=== PATIENT | male | born 1980 | race Caucasian/White ===

== ENCOUNTER 2023-10-12 19:17 | Observation (INO) | payer MEDICARE, OTHER ==
--- NOTE | 2023-10-12 19:31 | ED ---
General Adult HPI - General Chief complaint: Abdominal Pain Stated complaint: cholecystitis Time Seen by Provider: 10/12/23 19:30 Source: patient, EMS Mode of arrival: EMS Limitations: no limitations - History of Present Illness Initial comments: Patient transferred to our ED by ambulance from the [facility] ED. Per [facility] ED physician report, the patient presented there with complaints of right upper quadrant abdominal pain, and a CT obtained there demonstrated findings of acute cholecystitis. No ultrasound was performed at [facility]. Patient's CT report and labs were all reviewed myself. Patient's labs are pertinent for a WBC count of 13,000, a total bilirubin level of 2.8, a normal lipase level and normal transaminases. Patient reports having right upper quadrant abdominal pain, nausea and vomiting for the past 2 days. Patient states that his pain and nausea have currently improved. Patient was given a dose of IV Zosyn at [facility] prior to transfer to our ED. Patient denies trauma or injury, fever or chills, headache, focal neuro deficit, chest pain, dyspnea, cough or cold symptoms, dizziness, back or flank pain, diarrhea or constipation, bloody or melanotic stool, hematemesis, dysuria/hemat uria/urinary frequency/urinary symptoms, or any other symptoms or complaints. Of note, the patient is a Mosque. - Related Data Home Medications Medication Instructions Recorded Confirmed Ibuprofen/Diphenhydramine HCl 1 cap PO DIRECTED PRN 10/13/23 10/13/23 [Advil Pm Liqui-Gels] Levothyroxine Sodium [Synthroid] 50 mcg PO DAILY 10/13/23 10/13/23 Testosterone [Vogelxo 1%] 2 pump TOPICAL DAILY 10/13/23 10/13/23 Allergies Allergy/AdvReac Type Severity Reaction Status Date / Time Sulfa (Sulfonamide Allergy Rash/Hives/ Verified 10/13/23 09:53 Antibiotics) Itch Review of Systems ROS Statement: Those systems with pertinent positive or pertinent negative responses have been documented in the HPI. ROS Other: All systems not noted in ROS Statement are negative. Past Medical History Past Medical History: No Reported History History of Any Multi-Drug Resistant Organisms: None Reported Past Surgical History: No Surgical Hx Reported Additional Past Surgical History / Comment(s): States "cysts removed from legs and arms" Past Psychological History: No Psychological Hx Reported Smoking Status: Never smoker Past Alcohol Use History: Occasional Past Drug Use History: None Reported General Exam Limitations: no limitations General appearance: alert, in no apparent distress Eye exam: Present: normal appearance ENT exam: Present: mucous membranes moist Respiratory exam: Present: normal lung sounds bilaterally. Absent: respiratory distress, wheezes, rales, rhonchi, stridor Cardiovascular Exam: Present: regular rate, normal rhythm, normal heart sounds, other (Normal radial pulses bilaterally) GI/Abdominal exam: Present: soft, other (Mild right upper quadrant abdominal tenderness). Absent: guarding, rebound Back exam: Absent: CVA tenderness (R), CVA tenderness (L) Neurological exam: Present: alert, oriented X3 Psychiatric exam: Present: normal affect Skin exam: Present: warm, dry, normal color Course Vital Signs 10/12/23 10/12/23 10/12/23 19:24 21:59 23:47 Temperature 99.0 F 99.4 F Pulse Rate 82 82 80 Respiratory 18 16 18 Rate Blood Pressure 165/78 135/78 134/68 O2 Sat by Pulse 96 96 97 Oximetry - Reevaluation(s) Reevaluation #1: 10/12/23 21:42 Multiple pages have been sent to the on-call general surgeon (Dr. Munguia) without response as of yet. Patient was endorsed to Dr. Dave (secondary to shift change) at this time. Awaiting callback from general surgery at this time. Medical Decision Making - Medical Decision Making Was pt. sent in by a medical professional or institution (, PA, BACK OFFICE MEDICAL ASSISTANT, urgent care, hospital, or group home...) When possible be specific @ -Yes. Patient was transferred to our ED from the [facility] ED. Did you speak to anyone other than the patient for history (EMS, parent, family, police, friend...)? What history was obtained from this source @ -History was also provided by the [facility] ED physician. Did you review nursing and triage notes (agree or disagree)? Why? @ -I reviewed and agree with nursing and triage notes Were old charts reviewed (outside hosp., previous admission, EMS record, old EKG, old radiological studies, urgent care reports/EKG's, group home records)? Report findings @ -No old charts were reviewed Differential Diagnosis (chest pain, altered mental status, abdominal pain women, abdominal pain men, vaginal bleeding, weakness, fever, dyspnea, syncope, head ache, dizziness, GI bleed, back pain, seizure, CVA, palpatations, mental health, musculoskeletal)? @ -Differential Abdominal Pain Men: cholecystitis, biliary colic, pancreatitis, hepatitis, GERD, gastroenteritis, bowel obstruction, inflammatory bowel, peptic ulcer disease, perforated viscus, colitis, enteritis, this is not meant to be an all-inclusive list EKG interpreted by me (3pts min.). @ -None done X-rays interpreted by me (1pt min.). @ -None done CT interpreted by me (1pt min.). @ -None done U/S interpreted by me (1pt. min.). @ -Ultrasound report shows findings suggestive of acute cholecystitis. What testing was considered but not performed or refused? (CT, X-rays, U/S, labs)? Why? @ -None What meds were considered but not given or refused? Why? @ -None Did you discuss the management of the patient with other professionals (professionals i.e. , PA, BACK OFFICE MEDICAL ASSISTANT, lab, RT, psych nurse, psych social worker, concrete spreader, teacher, parking regulation enforcement officer, foster care case manager)? Give summary @ -As above. Was smoking cessation discussed for >3mins.? @ -No Was critical care preformed (if so, how long)? @ -No Were there social determinants of health that impacted care today? How? (Homelessness, low income, unemployed, alcoholism, drug addiction, transportation, low edu. Level, literacy, decrease access to med. care, skilled nursing, rehab)? @ -No Was there de-escalation of care discussed even if they declined (Discuss DNR or withdrawal of care, Hospice)? DNR status @ -No What co-morbidities impacted this encounter? (DM, HTN, Smoking, COPD, CAD, Cancer, CVA, ARF, Chemo, Hep., AIDS, mental health diagnosis, sleep apnea, morbid obesity)? @ -None Was patient admitted / discharged? Hospital course, mention meds given and route, prescriptions, significant lab abnormalities, going to OR and other pertinent info. @ -Patient was transferred to our ED from the [facility] ED after CT there showed findings of acute cholecystitis. Patient had an ultrasound performed here, which also demonstrates findings suggestive of acute cholecystitis. Patient has been treated with IV antibiotics. Patient reports that his symptoms have currently improved. Patient was endorsed to Dr. Dave (secondary to shift change) with the on-call general surgeon's callback pending. Dr. Dave to take over care of the patient at this time. - Lab Data Result diagrams: 10/12/23 20:09 10/13/23 03:07 Lab Results 10/12/23 10/12/23 Range/Units 20:09 20:09 WBC 12.5 H (3.8-10.6) k/uL RBC 5.14 (4.30-5.90) m/uL Hgb 15.2 (13.0-17.5) gm/dL Hct 47.0 (39.0-53.0) % MCV 91.5 (80.0-100.0) fL MCH 29.6 (25.0-35.0) pg MCHC 32.4 (31.0-37.0) g/dL RDW 13.8 (11.5-15.5) % Plt Count 136 L (150-450) k/uL MPV 7.8 Neutrophils % 84 % Lymphocytes % 9 % Monocytes % 4 % Eosinophils % 2 % Basophils % 0 % Neutrophils # 10.6 H (1.3-7.7) k/uL Lymphocytes # 1.1 (1.0-4.8) k/uL Monocytes # 0.5 (0-1.0) k/uL Eosinophils # 0.2 (0-0.7) k/uL Basophils # 0.0 (0-0.2) k/uL Sodium 141 (137-145) mmol/L Potassium 4.1 (3.5-5.1) mmol/L Chloride 112 H (98-107) mmol/L Carbon Dioxide 22 (22-30) mmol/L Anion Gap 7 mmol/L BUN 15 (9-20) mg/dL Creatinine 0.97 (0.66-1.25) mg/dL Est GFR (CKD-EPI)AfAm >90 (>60 ml/min/1.73 sqM) Est GFR (CKD-EPI)NonAf >90 (>60 ml/min/1.73 sqM) Glucose 119 H (74-99) mg/dL Calcium 8.6 (8.4-10.2) mg/dL Total Bilirubin 2.7 H (0.2-1.3) mg/dL AST 61 H (17-59) U/L ALT 75 H (4-49) U/L Alkaline Phosphatase 81 (38-126) U/L Total Protein 6.4 (6.3-8.2) g/dL Albumin 3.8 (3.5-5.0) g/dL Lipase 40 (23-300) U/L - Radiology Data Gallbladder ultrasound: Findings felt to reflect acute cholecystitis including gallbladder wall thickening, as intraluminal debris and a small amount of pericholecystic fluid. Disposition Clinical Impression: Abdominal pain, Nausea and vomiting Narrative: Suspected acute cholecystitis Disposition: ADMITTED IP TO THIS HOSP Is patient prescribed a controlled substance at d/c from ED?: No
[2023-10-12 20:22] LABS: Basophils % (A) 0 %; Eosinophils # (A) 0.2 k/uL (0-0.7); Eosinophils % (A) 2 %; HGB 15.2 gm/dL (13.0-17.5); Lymphocytes # (A) 1.1 k/uL (1.0-4.8); Lymphocytes % (A) 9 %; MCH 29.6 pg (25.0-35.0); MCHC 32.4 g/dL (31.0-37.0); MCV 91.5 fL (80.0-100.0); Mean Platelet Volume 7.8; Monocytes # (A) 0.5 k/uL (0-1.0); Monocytes % (A) 4 %; Neutrophils # (A) 10.6 k/uL (1.3-7.7); Neutrophils % (A) 84 %; Platelet Count 136 k/uL (150-450); RBC 5.14 m/uL (4.30-5.90); RDW 13.8 % (11.5-15.5); WBC 12.5 k/uL (3.8-10.6)
--- NOTE | 2023-10-12 20:27 | US ---
EXAMINATION TYPE: US gallbladder DATE OF EXAM: 10/12/2023 COMPARISON: NONE CLINICAL INDICATION: Male, 43 years old with history of abdominal pain, CT findings of acute cholecys titis; Abdominal pain x [address] findings of acute cholecystitis per order (outside facility). TECHNIQUE: Multiple sonographic images of the right upper quadrant are obtained. FINDINGS: EXAM MEASUREMENTS: Liver Length: 20.1 cm Gallbladder Wall: 0.64 cm CBD: Obscured Right Kidney: 11.9 x 6.5 x 5.8 cm NETWORK TECHNOLOGY INSTRUCTOR NOTES: Exam is limited due to gas and patient body habitus Pancreas: Not well visualized Liver: Enlarged and heterogeneous. Limited due to gas and the need to image intercostally. Gallbladder: *Appears hydropic measuring 10.9 cm in length. Wall appears thickened. Hyperechoic foci with shadowing and echogenic material seen within measurin.5 x 4.8 x 3.7 cm. Evidence for sonographic Chen's sign: No CBD: Obscured Right Kidney: No hydronephrosis or masses seen IMPRESSION: Findings felt to reflect acute cholecystitis include gallbladder wall thickening, as intraluminal susana ris and a small amount of pericholecystic fluid.
[2023-10-12 20:31] LABS: ALT 75 U/L (4-49); AST 61 U/L (17-59); African American GFR (CKD) >90 (>60 ml/min/1.73 sqM); Albumin 3.8 g/dL (3.5-5.0); Alkaline Phosphatase 81 U/L (38-126); Anion Gap 7 mmol/L; Blood Urea Nitrogen 15 mg/dL (9-20); Calcium 8.6 mg/dL (8.4-10.2); Carbon Dioxide 22 mmol/L (22-30); Chloride 112 mmol/L (98-107); Glucose 119 mg/dL (74-99); Lipase 40 U/L (23-300); Non-African American GFR(CKD) >90 (>60 ml/min/1.73 sqM); Potassium 4.1 mmol/L (3.5-5.1); Sodium 141 mmol/L (137-145); Total Bilirubin 2.7 mg/dL (0.2-1.3); Total Protein 6.4 g/dL (6.3-8.2)
[2023-10-12] MEDS ORDERED: NALOXONE 0.4 MG/ML 1 ML VIAL IV PRN (22:06)
[2023-10-12] MEDS ORDERED: ONDANSETRON 4 MG/2 ML VIAL IVP PRN (22:06)
[2023-10-12] MEDS: HYDROmorphone 0.5 MG/0.5 ML SYRINGE IVP PRN (23:01)
[2023-10-12] MEDS: SODIUM CHLORIDE 0.9% 1,000 ML IV SCH (23:06)
[2023-10-12] MEDS: PIPERACILLIN-TAZOBACTAM 3.375 GM in SODIUM CHLORIDE 0.9% 100 ML IVPB STA (23:09)
[2023-10-12] MEDS: ACETAMINOPHEN TAB 325 MG TAB PO PRN (23:51)
[2023-10-13 03:37] LABS: Bilirubin,Unconjugated 2.5 mg/dL (0.0-1.1); Total Bilirubin 2.7 mg/dL (0.2-1.3)
[2023-10-13] MEDS: PIPERACILLIN-TAZOBACTAM 3.375 GM in SODIUM CHLORIDE 0.9% 100 ML IVPB SCH (06:09)
[2023-10-13] MEDS: PANTOPRAZOLE 40 MG/10 ML VIAL IV SCH (08:16)
[2023-10-13] MEDS: HYDROmorphone 1 MG/ML 1 ML SYRINGE IVP PRN (09:40)
--- NOTE | 2023-10-13 11:03 | P.GSHP ---
History of Present Illness H&P Date: 10/13/23 Chief Complaint: Cholecystitis 43-year-old male comes to the hospital complaining of pain right upper quadrant. Patient had a CAT scan performed at outside institution showing acute cholecystitis. Ultrasound shows multiple stones and inflammation. Patient's bilirubin is elevated. He says his urine is very dark today. Pain is somewhat improved. Patient has had episodes of nausea and vomiting at home. Patient is developmentally delayed. He and his family are Sikhism. No history of similar events. - Review of Systems Comment: The patient denies any acute changes in vision or hearing, no dysphagia or odynophagia, no chest pain or shortness of breath, no dysuria or hematuria, no headache, no runny nose, no rectal bleeding or melena, no unexplained weight loss Past Medical History Past Medical History: No Reported History History of Any Multi-Drug Resistant Organisms: None Reported Past Surgical History: No Surgical Hx Reported Additional Past Surgical History / Comment(s): States "cysts removed from legs and arms" Past Anesthesia/Blood Transfusion Reactions: No Reported Reaction Past Psychological History: No Psychological Hx Reported Smoking Status: Never smoker Past Alcohol Use History: None Reported Past Drug Use History: None Reported Medications and Allergies Home Medications Medication Instructions Recorded Confirmed Type Ibuprofen/Diphenhydramine HCl 1 cap PO DIRECTED PRN 10/13/23 10/13/23 History [Advil Pm Liqui-Gels] Levothyroxine Sodium [Synthroid] 50 mcg PO DAILY 10/13/23 10/13/23 History Testosterone [Vogelxo 1%] 2 pump TOPICAL DAILY 10/13/23 10/13/23 History Allergies Allergy/AdvReac Type Severity Reaction Status Date / Time Sulfa (Sulfonamide Allergy Rash/Hives/ Verified 10/13/23 09:53 Antibiotics) Itch Surgical - Exam Vital Signs Temp Pulse Resp BP Pulse Ox 99.0 F 82 18 165/78 96 10/12/23 19:24 10/12/23 19:24 10/12/23 19:24 10/12/23 19:24 10/12/23 19:24 Physical exam: General: Well-developed, well-nourished HEENT: Normocephalic, sclerae nonicteric Abdomen: Mild right upper quadrant tenderness nondistended Extremities: No edema Neuro: Alert and oriented Results - Labs 10/12/23 20:09 10/12/23 20:09 Abnormal Lab Results - Last 24 Hours (Table) 10/12/23 10/12/23 10/13/23 Range/Units 20:09 20:09 03:07 WBC 12.5 H (3.8-10.6) k/uL Plt Count 136 L (150-450) k/uL Neutrophils # 10.6 H (1.3-7.7) k/uL Chloride 112 H (98-107) mmol/L Glucose 119 H (74-99) mg/dL Total Bilirubin 2.7 H 2.7 H (0.2-1.3) mg/dL Unconjugated Bilirubin 2.5 H (0.0-1.1) mg/dL AST 61 H (17-59) U/L ALT 75 H (4-49) U/L Diabetes panel 10/12/23 Range/Units 20:09 Sodium 141 (137-145) mmol/L Potassium 4.1 (3.5-5.1) mmol/L Chloride 112 H (98-107) mmol/L Carbon Dioxide 22 (22-30) mmol/L BUN 15 (9-20) mg/dL Creatinine 0.97 (0.66-1.25) mg/dL Glucose 119 H (74-99) mg/dL Calcium 8.6 (8.4-10.2) mg/dL AST 61 H (17-59) U/L ALT 75 H (4-49) U/L Alkaline Phosphatase 81 (38-126) U/L Total Protein 6.4 (6.3-8.2) g/dL Albumin 3.8 (3.5-5.0) g/dL Calcium panel 10/12/23 Range/Units 20:09 Calcium 8.6 (8.4-10.2) mg/dL Albumin 3.8 (3.5-5.0) g/dL Pituitary panel 10/12/23 Range/Units 20:09 Sodium 141 (137-145) mmol/L Potassium 4.1 (3.5-5.1) mmol/L Chloride 112 H (98-107) mmol/L Carbon Dioxide 22 (22-30) mmol/L BUN 15 (9-20) mg/dL Creatinine 0.97 (0.66-1.25) mg/dL Glucose 119 H (74-99) mg/dL Calcium 8.6 (8.4-10.2) mg/dL Adrenal panel 10/12/23 10/13/23 Range/Units 20:09 03:07 Sodium 141 (137-145) mmol/L Potassium 4.1 (3.5-5.1) mmol/L Chloride 112 H (98-107) mmol/L Carbon Dioxide 22 (22-30) mmol/L BUN 15 (9-20) mg/dL Creatinine 0.97 (0.66-1.25) mg/dL Glucose 119 H (74-99) mg/dL Calcium 8.6 (8.4-10.2) mg/dL Total Bilirubin 2.7 H 2.7 H (0.2-1.3) mg/dL AST 61 H (17-59) U/L ALT 75 H (4-49) U/L Alkaline Phosphatase 81 (38-126) U/L Total Protein 6.4 (6.3-8.2) g/dL Albumin 3.8 (3.5-5.0) g/dL Assessment and Plan (1) Acute cholecystitis Narrative/Plan: 43-year-old male with acute cholecystitis. Patient's bilirubin remains elevated and he has dark-colored urine. Agree with plans for MRCP. Await those findings. Keep n.p.o. for now. Repeat labs. Continue antibiotics. Clinical scenario discussed with patient and his parents. Current Visit: Yes Status: Acute Code(s): K81.0 - ACUTE CHOLECYSTITIS SNOMED Code(s): 13844702
[2023-10-13 11:25] LABS: ALT 75 U/L (4-49); AST 53 U/L (17-59); African American GFR (CKD) >90 (>60 ml/min/1.73 sqM); Albumin 3.3 g/dL (3.5-5.0); Albumin/Globulin Ratio 1.3; Alkaline Phosphatase 79 U/L (38-126); Anion Gap 9 mmol/L; Blood Urea Nitrogen 15 mg/dL (9-20); Calcium 8.4 mg/dL (8.4-10.2); Carbon Dioxide 21 mmol/L (22-30); Chloride 111 mmol/L (98-107); Globulin 2.6 g/dL; Glucose 110 mg/dL (74-99); Non-African American GFR(CKD) >90 (>60 ml/min/1.73 sqM); Potassium 3.9 mmol/L (3.5-5.1); Sodium 141 mmol/L (137-145); Total Bilirubin 2.6 mg/dL (0.2-1.3); Total Protein 5.9 g/dL (6.3-8.2)
[2023-10-14 08:50] LABS: Basophils # (A) 0.02 X 10*3/uL (0.00-0.10); Basophils % (A) 0.2 %; Eosinophils # (A) 0.09 X 10*3/uL (0.04-0.35); Eosinophils % (A) 0.8 %; HCT 41.4 % (39.6-50.0); HGB 13.4 g/dL (13.0-17.0); Lymphocytes # (A) 1.04 X 10*3/uL (0.90-5.00); Lymphocytes % (A) 9.2 %; MCH 29.7 pg (27.0-32.0); MCHC 32.4 g/dL (32.0-37.0); MCV 91.8 FL (80.0-97.0); Mean Platelet Volume 10.4 FL (9.5-12.2); Monocytes # (A) 0.94 X 10*3/uL (0.20-1.00); Monocytes % (A) 8.3 %; NRBC Per 100 WBC 0 X 10*3/uL (0.00-0.01); Neutrophils # (A) 9.19 X 10*3/uL (1.80-7.70); Platelet Count 132 X 10*3/uL (140-440); RBC 4.51 X 10*6/uL (4.40-5.60); RDW 13.4 % (11.5-14.5); WBC 11.34 X 10*3/uL (4.50-10.00)
[2023-10-14 09:31] LABS: ALT 50 U/L (10-49); AST 38 U/L (14-35); Albumin 3.4 g/dL (3.8-4.9); Alkaline Phosphatase 130 U/L (41-126); BUN/Creat Ratio 12.33 Ratio (12.00-20.00); Blood Urea Nitrogen 14.8 mg/dL (9.0-27.0); Calcium 8.6 mg/dL (8.7-10.3); Carbon Dioxide 23.4 mmol/L (21.6-31.8); Chloride 109 mmol/L (96-109); Glucose 105 mg/dL (70-110); Potassium 4.1 mmol/L (3.5-5.5); Sodium 143 mmol/L (135-145); Total Bilirubin 2.4 mg/dL (0.3-1.2); Total Protein 5.4 g/dL (6.2-8.2)
--- NOTE | 2023-10-14 14:50 | P.PN ---
Subjective Progress Note Date: 10/14/23 CHIEF COMPLAINT: Cholecystitis HISTORY OF PRESENT ILLNESS: Patient sitting up in bed comfortably. He does have some right upper quadrant tenderness. He is scheduled for an MRCP. Initially MRCP and surgery rescheduled for today. Unfortunately MRCP cannot be done until tomorrow. Therefore surgery has also been postponed until tomorrow and depending MRCP results. Ultrasound shows multiple stones and inflammation. Afebrile. Patient's total bilirubin remains elevated from 2.6 to 2.4. LFTs mildly elevated. AST 38 ALT 50 alk phos 130 PHYSICAL EXAM: VITAL SIGNS: Reviewed. GENERAL: Well-developed in no acute distress. HEENT: Sclera icterus present ABDOMEN: Soft. Nondistended. Right upper quadrant tenderness with palpation NEUROLOGIC: Alert and oriented. Cranial nerves II through XII grossly intact. ASSESSMENT: 1. Acute cholecystitis 2. Possible choledocholithiasis with elevated total bilirubin and LFTs PLAN: -Patient scheduled for MRCP tomorrow -Patient scheduled for possible laparoscopic cholecystectomy with Dr. Crowe tomorrow -Patient can have full liquid diet today -N.p.o. after midnight -Continue IV fluids -Continue antibiotics -Continue pain management -Repeat labs in a.m. Physician Candy Maker note has been reviewed by physician. Signing provider agrees with the documented findings, assessment, and plan of care. I have personally seen and examined the patient, reviewed the ASSOCIATE PROFESSOR OF ECONOMICS /PAs history, exam and MDM and agree with the assessment and plan as written. Based on total visit time, I have performed more than 50% of the visit. As above: Patient's liver enzymes slightly higher today. Still with some dark- colored urine. MRCP apparently scheduled for tomorrow. May begin liquid diet. Possible cholecystectomy tomorrow based on MRCP findings. Objective - Vital Signs Vital signs: Vital Signs Temp 97.6 F 10/14/23 12:07 Pulse 82 10/14/23 12:07 Resp 16 10/14/23 12:07 BP 142/89 10/14/23 12:07 Pulse Ox 92 L 10/14/23 12:07 FiO2 Intake & Output 10/13/23 10/14/23 10/14/23 18:59 06:59 18:59 Other: Voiding Method Toilet Toilet # Voids 1 3 - Labs CBC & Chem 7: 10/14/23 06:01 10/14/23 06:01 Labs: Abnormal Lab Results - Last 24 Hours (Table) 10/14/23 10/14/23 Range/Units 06:01 06:01 WBC 11.34 H (4.50-10.00) X 10*3/uL Plt Count 132 L (140-440) X 10*3/uL Immature Gran # 0.06 H (0.00-0.04) X 10*3/uL Neutrophils # 9.19 H (1.80-7.70) X 10*3/uL Calcium 8.6 L (8.7-10.3) mg/dL Total Bilirubin 2.4 H (0.3-1.2) mg/dL AST 38 H (14-35) U/L ALT 50 H (10-49) U/L Alkaline Phosphatase 130 H (41-126) U/L Total Protein 5.4 L (6.2-8.2) g/dL Albumin 3.4 L (3.8-4.9) g/dL
[2023-10-15 10:51] LABS: Basophils # (A) 0.02 X 10*3/uL (0.00-0.10); Basophils % (A) 0.3 %; Eosinophils # (A) 0.06 X 10*3/uL (0.04-0.35); Eosinophils % (A) 0.8 %; HCT 43.8 % (39.6-50.0); HGB 14.2 g/dL (13.0-17.0); Lymphocytes % (A) 15.4 %; MCH 29.4 pg (27.0-32.0); MCHC 32.4 g/dL (32.0-37.0); MCV 90.7 FL (80.0-97.0); Mean Platelet Volume 10.3 FL (9.5-12.2); Monocytes # (A) 0.64 X 10*3/uL (0.20-1.00); Monocytes % (A) 8.9 %; NRBC Per 100 WBC 0 X 10*3/uL (0.00-0.01); Neutrophils # (A) 5.31 X 10*3/uL (1.80-7.70); Neutrophils % (A) 74.2 %; Platelet Count 142 X 10*3/uL (140-440); RBC 4.83 X 10*6/uL (4.40-5.60); RDW 13.5 % (11.5-14.5); WBC 7.16 X 10*3/uL (4.50-10.00)
[2023-10-15 11:19] LABS: ALT 176 U/L (10-49); AST 175 U/L (14-35); Albumin 3.4 g/dL (3.8-4.9); Albumin/Globulin Ratio 1.48 Ratio (1.60-3.17); Alkaline Phosphatase 371 U/L (41-126); BUN/Creat Ratio 12.18 Ratio (12.00-20.00); Blood Urea Nitrogen 13.4 mg/dL (9.0-27.0); Calcium 8.7 mg/dL (8.7-10.3); Carbon Dioxide 22.7 mmol/L (21.6-31.8); Chloride 108 mmol/L (96-109); Globulin 2.3 g/dL (1.6-3.3); Glucose 94 mg/dL (70-110); Potassium 3.7 mmol/L (3.5-5.5); Sodium 143 mmol/L (135-145); Total Bilirubin 4.8 mg/dL (0.3-1.2); Total Protein 5.7 g/dL (6.2-8.2)
--- NOTE | 2023-10-15 15:50 | P.DS ---
Providers Date of admission: 10/12/23 22:11 Expected date of discharge: 10/15/23 Attending physician: Gordon Crowe Primary care physician: Ronni Infante [facility] Course: Discharge diagnosis 1. Acute cholecystitis 2. Possible choledocholithiasis with worsening total bilirubin and LFTs Hospital course This is a 43-year-old male who presented to hospital with complaints of right upper quadrant abdominal pain. Ultrasound had shown multiple gallstones and inflammation. He had a CT scan at an outside institution that had shown acute cholecystitis. Patient's bilirubin was elevated and he had been having dark urine. Also episode of nausea and vomiting. Patient placed on antibiotics. Labs were being monitored his LFTs and total bilirubin are trending upwards. Patient continues to have abdominal pain. There is concerns for possible choledocholithiasis. There is no GI service available at this institution at this time. We are recommending transfer to [facility] for GI evaluation and possible ERCP. [facility] has accepted the patient. We are awaiting for bed availability. Accepting physician is Dr. Rajesh Vines. Patient is stable for discharge. Physician Digital Strategist note has been reviewed by physician. Signing provider agrees with the documented findings, assessment, and plan of care. Patient Condition at Discharge: Stable Plan - Discharge Summary Discharge Rx Participant: No New Discharge Prescriptions: No Action Testosterone [Vogelxo 1%] 2 pump TOPICAL DAILY Levothyroxine Sodium [Synthroid] 50 mcg PO DAILY Ibuprofen/Diphenhydramine HCl [Advil Pm Liqui-Gels] 1 cap PO DIRECTED PRN PRN Reason: Pain Discharge Medication List Ibuprofen/Diphenhydramine HCl [Advil Pm Liqui-Gels] 1 cap PO DIRECTED PRN 10/13/23 [History] Levothyroxine Sodium [Synthroid] 50 mcg PO DAILY 10/13/23 [History] Testosterone [Vogelxo 1%] 2 pump TOPICAL DAILY 10/13/23 [History] Follow up Appointment(s)/Referral(s): Ronni Infante MD [Primary Care Provider] - 1-2 days Activity/Diet/Wound Care/Special Instructions: Transfer to [facility] Discharge Disposition: OTHER INSTITUTION NOT DEFINED
--- NOTE | 2023-10-15 19:38 | MR ---
EXAMINATION TYPE: MR liver wo/w con and mrcp DATE OF EXAM: 10/15/2023 1:55 PM CLINICAL INDICATION:Male, 43 years old with history of cholecystitis with elevated bilirubin; PHH, Ch olecystitis with elevated bilirubin COMPARISON: Ultrasound 10/12/2023 TECHNIQUE MRI ABDOMEN WITH CONTRAST: Multiplanar multi-sequence imaging was performed without and wit h IV contrast/gadolinium. The patient was given 14.5 cc Gadavist gadolinium intravenously and dynami c post-VIBE (volumetric interpolated breath-hold gradient recall echo) imaging was performed. IV Contrast: 14.5 cc Gadavist TECHNIQUE MRCP ABDOMEN WITHOUT CONTRAST: Multi planar, T2-weighted imaging with and without fat satur ation and chemical shift imaging was performed of the abdomen. Then, heavily T2 weighted imaging (catrachita f-Fourier acquisition single-shot turbo spin-echo) was utilized in order to study the biliary system. Maximum intensity projection images were reconstructed from the original data of the biliary tree. 3D reconstructions and MIP imaging performed on a separate workstation. FINDINGS: MRCP: * The common bile duct at the level of the pancreatic head is poorly visualized due to motion. * The common hepatic duct measures 9 mm in size. * The pancreatic duct is normal. * The gallbladder demonstrates multiple gallstones present throughout the lumen with gallbladder wal l thickening in the fat stranding changes. The lateral wall measuring up to 10 mm. There may be a sto ne seen within the common bile duct on series 301 image 18. LOWER CHEST: No gross irregularity. ABDOMEN Liver: No evidence for hepatic steatosis or cirrhosis. Signal dropout on chemical shift in phase imag ing. Pancreas: No ductal dilation. No evidence for solid mass. Spleen: Normal for size. Signal dropout on chemical shift in phase imaging. Adrenal glands: Unremarkable. Kidneys: No evidence for obstructive uropathy. No suspicious renal masses. Stomach and Bowel: No evidence for bowel wall thickening or evidence for obstruction. Retroperitoneum/Peritoneum: No evidence of pneumoperitoneum or free fluid. Vasculature: No aortic aneurysm. Musculoskeletal: The osseous structures appear intact. Lymph Nodes: No gross evidence for lymphadenopathy. Abdominal wall: Unremarkable. IMPRESSION: 1. Redemonstration of findings compatible with acute cholecystitis as seen on 10/12/2023 ultrasound. [place]aton rgical consultation recommended. 2. Poor visualization of the extrahepatic biliary system due to motion. Suspected gallstone in the ex trahepatic biliary system possibly within the common bile duct seen on one image only. ERCP and surgi samuel consultation recommended. 3. Iron deposition within the spleen and liver.
[2023-10-15 20:01] VITALS: RESP 16; TEMP 98.2
[2023-10-16 02:22] VITALS: BP 133/77; PULSE 81
== END 2023-10-16 02:35 | disposition other institution (70) ==
LOC: EC 19:17 → 5NMEDONC 22:11 → INTOOBSV 22:11 → 5NMEDONC 22:29 → UNDODISIN 10-16 02:35
PROVIDERS: ADMIT Surgery; ATTEND Surgery
DX: K81.0 Acute cholecystitis (principal); R62.50 Unspecified lack of expected normal physiological development in childhood; Z79.890 Hormone replacement therapy; Z88.2 Allergy status to sulfonamides
CPT/HCPCS: 96376 ×3; 96361; 96366 ×3; 96375 ×2; 96365; 99285; 36415; 80053 ×4; 82248; 83690; 85025 ×3; 76705; 74183; G0378 ×5; J2543 ×4; J1170 ×4; C9113 ×3; A9585